=== PATIENT | female | born 2000 | race Caucasian/White ===

== ENCOUNTER 2022-03-15 19:19 | Emergency (ER) | payer OTHER, SELFPAY ==
[2022-03-15 19:28] VITALS: BP 135/88; PULSE 118; RESP 18; TEMP 36.8; O2SAT 98
[2022-03-15 19:44] LABS: Strep A Nucleic Acid Negative (Negative)
[2022-03-15 19:50] LABS: COVID-19 Test Negative (Negative); IDNOW Serial# 16C4AD1C
[2022-03-15 20:00] LABS: Influenza A Positive (Negative); Influenza B2 Negative (Negative)
--- NOTE | 2022-03-15 20:38 | ED_ITS ---
HPI - URI/Sore Throat General Chief Complaint: General Medical Stated Complaint: possible strep Time Seen by Provider: 03/15/22 20:38 Source: patient Mode of arrival: ambulatory Limitations: no limitations History of Present Illness HPI Narrative: Patient presents to the emergency department for evaluation of sore throat, headache, nasal congestion, cough since yesterday. Two days ago she was exposed to somebody who tested positive for strep throat. She reports a fever yesterday of 101.2. Related Data Allergies Allergy/AdvReac Type Severity Reaction Status Date / Time No Known Allergies Allergy Verified 03/15/22 19:30 Review of Systems Review of Systems: Constitutional: Positive fever No weight loss, chills, weakness or fatigue. HEENT: positive nasal congestion. Positive sore throat. Skin: No rash or itching. Cardiovascular: No chest pain, chest pressure or chest discomfort. No palpitations Respiratory: Positive cough No shortness of breath Gastrointestinal: No anorexia, nausea, vomiting or diarrhea. No abdominal pain Genitourinary: No burning micturition. No urinary frequency or incontinence. Neurologic: No headache, dizziness, syncope Musculoskeletal: No muscle pain, back pain, joint pain or stiffness. Hematologic: No bleeding or bruising. Lymphatics: No enlarged lymph nodes. Endocrine: No polyuria or polydipsia. Yes all other systems are reviewed and are negative PMFSH Past Medical History Attestation statement: The following information was validated with the patient. Source: old records reviewed Social History Social History Advance Directives: No Advance Directives Information Provided: No Physical Exam Vital Signs: Vital Signs: Last Vital Signs Temp 98.2 F 03/15/22 19:28 Pulse 118 H 03/15/22 19:28 Resp 18 03/15/22 19:28 BP 135/88 03/15/22 19:28 Pulse Ox 98 03/15/22 19:28 BMI result Body Mass Index 20.0 Vital signs have been reviewed as normal and appeared to be correct. Blood pressure normal.? Heart rate initially elevated during triage at 118, during my exam heart rate had improved to 92.? Respiration rate normal. Temperature moises l.? Oxygen saturation normal. Appearance: Alert.?Oriented to person, place and time. No acute distress.?Normal affect. Eyes: Pupils equal, round and reactive to light.? ENT: Pharynx mild erythema, no tonsillar hypertrophy, no exudate?? Neck: Normal inspection.? Neck supple.?? CVS: Heart sounds normal. Normal heart rate and rhythm.? Pulses normal.?? Respiratory: No respiratory distress.? Lung sounds clear to auscultation bilaterally?? Abdomen: Soft and non-tender. Skin: Skin warm and dry.? Normal skin color.? Extremities: No lower extremity edema. Neuro: Moves all extremities spontaneously. Sensation intact bilaterally. No focal neuro deficits. Ambulates with normal steady gait. Course Course Course Narrative: Patient is a 21-year-old female with exposure to strep positive person, presenting to the Emergency Department evaluation of upper respiratory symptoms and sore throat. She is well appearing, nontoxic, afebrile, maintaining airway. Not consistent with peritonsillar abscess, retropharyngeal abscess. COVID- 19 and strep testing are negative. Influenza A testing is positive. Discussed findings with patient, conservative measures including rest, hydration, reasons to return back to the emergency department, all questions were answered and patient is agreeable with plan of care. MDM - URI/Sore Throat Lab Data Labs: Lab Results 03/15/22 03/15/22 03/15/22 Range/Units 19:27 19:27 19:27 COVID-19 (SHANNAN) Negative (Negative) COVID-19 Clin Com See Note Influenza Type A (RONALDO) Positive A (Negative) Influenza Type B (RONALDO) Negative (Negative) Influenza A & B Note See Note S. pyogenes GrpA RONALDO Negative (Negative) Discharge Plan Discharge Clinical Impression: Influenza A Patient Disposition: Home, Self-Care Instructions: Influenza (ED) Additional Instructions: You have tested positive for the flu. Be sure to rest, stay well hydrated, use Tylenol or ibuprofen as needed for body aches, or fever. You can return to work or school once you have been without a fever for 24 hours, and when your symptoms have resolved.
== END 2022-03-15 21:00 | disposition home or self-care (01) ==
PROVIDERS: Emergency Provider Internal Medicine
DX: J10.1 Influenza due to other identified influenza virus with other respiratory manifestations (principal); Z20.822 Contact with and (suspected) exposure to COVID-19; Z79.899 Other long term (current) drug therapy
CPT/HCPCS: 87502; 87635; 87651; 99283

== ENCOUNTER 2025-06-15 11:39 | Outpatient (REF) | payer OTHER, SELFPAY ==
[2025-06-15 22:22] LABS: CT PCR Urine NOT DETECTED (Not Detect.); NG PCR Urine NOT DETECTED (Not Detect.)
== END 2025-06-15 11:40 | disposition home or self-care (01) ==
LOC: CF 11:39
PROVIDERS: Visit Provider Physician Assistant Medical
DX: R30.0 Dysuria (principal); Z11.8 Encounter for screening for other infectious and parasitic diseases; Z13.89 Encounter for screening for other disorder
CPT/HCPCS: 36415; 81003; 81025; 87086; 87491; 87591; 99212

== ENCOUNTER 2025-06-15 11:39 | Outpatient (AMB) | payer OTHER, SELFPAY ==
--- NOTE | 2025-06-15 11:46 | AM.OFFWIN_ITS ---
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 dark urine, burning with urinating, burning to vagina. Allergies No Known Allergies Allergy (Verified 06/15/25 11:52) Do you need a note to return to daycare/school/sports/work: Yes HPI HPI Comments History of Present Illness Details History - The patient is a 24-year-old female pr esenting with urinary symptoms suggestive of a urinary tract infection. - She reports a burning sensation in the vaginal area, primarily after urination, which started three days ago. - She is currently on her menstrual evelin od, which began two to three days ago, and has experienced abdominal pain attributed to menstrual cramps. - There is a concern for a possible sexu ally transmitted infection, although no tests have been conducted yet. - The patient has experienced diarrhea b ut denies any nausea, vomiting, fever, chills, or back pain. - She recently restarted control e ight days ago after a year-long hiatus and is uncertain about the possibility of . - She has been sexually active. Physical Exam General: Cooperative, healthy appearing, comfortable, no acute distress and well developed Cardiac: Normal S1 and S2. RRR, no M/R/G noted. Respiratory: Normal respiratory effort and able to speak in complete sentences. Clear to auscultation bilaterally. No w/r/r noted. Skin: No rashes or lesions noted. GI: Normal inspection. Normal BS noted. Soft, non-tender, non-distended. No TTP of all 4 quadrants. No guarding or rebound tenderness noted. Back: Negative CVA bilaterally Patient was informed and verbally consented to the use of an ambient scribe for clinic note documentation during this visit. Review of Systems Const All systems reviewed & are unremarkable except as noted in HPI and below Physical Exam Vital Signs: Last Vital Signs Temp 98.1 F 06/15/25 11:47 Pulse 90 06/15/25 11:47 BP 106/70 06/15/25 11:47 Pulse Ox 98 06/15/25 11:47 Oxygen Delivery Method Room Air 06/15/25 11:47 BMI result Body Mass Index 22.9 Results AMB Urinalysis, Automated UA Leukoctes 500 Adeel/uL Last Edit by Krysta Brewer MA on 06/15/25 12:04 UA Nitrite Negative Last Edit by Krysta Brewer MA on 06/15/25 12:04 UA Urobilinogen 0.2 mg/dL Last Edit by Krysta Brewer MA on 06/15/25 12:04 UA Protein 0 mg/dL Last Edit by Krysta Brewer MA on 06/15/25 12:04 UA pH 6.0 Last Edit by Krysta Brewer MA on 06/15/25 12:04 UA Blood 200 Omkar/uL Last Edit by Krysta Brewer MA on 06/15/25 12:04 UA Specific [place] 1.015 Last Edit by Krysta Brewer MA on 06/15/25 12:0 4 UA Ketone Negative Last Edit by Krysta Brewer MA on 06/15/25 12:04 UA Bilirubin 0 mg/dL Last Edit by Krysta Brewer MA on 06/15/25 12:04 UA Glucose 0 mg/dL Last Edit by Krysta Brewer MA on 06/15/25 12:04 Results Reviewed Results Reviewed: Laboratory Last Values Urine pH (Auto) 6.0 06/15/25 11:53 Specific [place] (Auto) 1.015 06/15/25 11:53 Urine Protein (Auto) 0 mg/dL 06/15/25 11:53 Glucose (UA)(Auto) 0 mg/dL 06/15/25 11:53 Urine Ketones (Auto) Negative 06/15/25 11:53 Urine Blood (Auto) 200 Omkar/uL H* 06/15/25 11:53 Urine Nitrite (Auto) Negative 06/15/25 11:53 Urine Bilirubin (Auto) 0 mg/dL 06/15/25 11:53 Urine Urobilinogen (Auto) 0.2 mg/dL 06/15/25 11:53 Leukocyte Esterase (Auto) 500 Adeel/uL H* 06/15/25 11:53 Assessment & Plan Assessment & Plan (1) Dysuria: Code(s): R30.0 - Dysuria Plan Most likely UTI vs STD UA in the office shows 3+ leuko and blood HCG in the office was negative Plan - Plan to conduct urinalysis and culture to confirm diagnosis and guide treatment. - Consider empirical antibiotic therapy based on urinalysis results. - Drink lots of fluids - tylenol or motrin as needed for pain 2. Possible Sexually Transmitted Infection (Sti) - Plan to conduct STI panel to rule out infections. Orders: Orders AMB Urinalysis Automated Today Z13.9 - Encounter for screening, unspecified AMB HCG Urine Test Today R30.0 - Dysuria Urine Culture Today N39.0 - Urinary tract infection, site not specified, R30.0 - Dysuria CT NG by PCR Urine Today R30.0 - Dysuria Coding Level of Care Code Est Pt Level 4 (04997) Diagnoses Dysuria R30.0
[2025-06-15 11:47] VITALS: BP 106/70; PULSE 90; TEMP 36.7; O2SAT 98; BMI 22.9
--- OUTSIDE RECORDS SUMMARY | 2025-06-15 12:32 | XMS_ITS | Encounter Summary ---
Author Organization [facility] Address [address] [place] [address] Phone Care Team Providers Care Monument Setter Helper Name Role Phone Bree Padilla MD Primary Care Provider [phone] Encounter Details Date Type Department Care Team (Late st Contact Info) Description 07/10/2012 Documentation [facility] [place] [address] [place] [address] Family Medicine, Physician [address] [place] [address] Social History Tobacco Use Types Packs/Day Years Used Date Smoking Tobacco: Never Assessed Comments Unknown Sex and Gender Information Value Date Recorded Sex Assigned at Female 01/26/2020 9:29 AM EST Legal Sex Female 4:54 PM EDT Gender Identity Female 01/26/2020 9:29 AM EST Sexual Orientation Straight 01/26/2020 9: 29 AM EST documented as of this encounter Plan of Treatment Not on file documented as of this encounter Visit Diagnoses Not on filedocumented in this encounter Care Teams Monument Setter Helper Relationship Specialty Start Date End Date Bree Padilla MD [address] [place] [address] PCP - General Pediatrics 01/02/23 07/01/23 documented as of this encounter
--- OUTSIDE RECORDS SUMMARY | 2025-06-15 12:32 | XMS_ITS | Clinical Summary ---
Author Organization [facility] Address [address] [place] [id number] Phone Care Team Providers Care Clockmaker Name Role Phone Pcp, Unknown Primary Care Provider Unavailabl e Allergies No known active allergies Medications No known medications Social History Tobacco Use Types Packs/Day Years Used Date Smoking Tobacco: Never Assessed Education Answer Date Recorded Are you interested in more education? Not on anni e 11/28/2023 Are you concerned about learning? Not on file 11/28/2023 No 11/28/2023 No 11/28/2023 Digital Access Answer Date Recorded No 11/28/2023 No 11/28/2023 Reliable internet access at home? Not on file 11/28/2023 Device with a working camera? Not on file Comments Unknown Sex and Gender Information Value Date Recorded Sex Assigned at Female 11/28/2023 9:15 AM EST Legal Sex Female 8:53 AM EST Gender Identity Female 11/28/2023 9:15 AM EST Sexual Orientation Straight 11/28/2023 9: 15 AM EST Last Filed Vital Signs Vital Sign Reading Time Taken Comments Blood Pressure 113/93 11/28/2023 12:29 PM EST Pulse 110 11/28/2023 9:14 AM EST Temperature 36.8 C (98.2 F) 11/28/2023 12:29 PM EST Respiratory Rate 18 11/28/2023 12:29 PM EST Oxygen Saturation 94% 11/28/2023 12:29 PM EST Inhaled Oxygen Concentration - - Weight 59 kg (130 lb) 11/28/2023 9:14 AM EST Height 157.5 cm (5' 2 ) 11/28/2023 9:14 AM EST Body Mass Index 23.78 11/28/2023 9:14 AM EST Plan of Treatment Health Maintenance Due Date Last Done Comments DEPRESSION SCREENING 2013 SMOKING Hx and SMOKELESS TOB ACCO SCREENING 2014 HPV VACCINES (1 - 3-dose series) 2016 CHLAMYDIA SCREENING 2017 MENINGOCOCCAL VACCINES (B) ( 1 of 2 - Standard) 2017 HEPATITIS C SCREENING 2019 HIV ONE-TIME SCREENING (18-6 5 YEARS) 2019 PAP SMEAR 2022 COVID-19 VACCINE (1 - 2023-2 5 season) 2024 Adult Td,Tdap Booster 09/13/2024 09/13/2014 HEPATITIS A VACCINES Aged Out No long er eligible based on patient's age to complete this topic HIB VACCINES Aged Out No longer eligi ble based on patient's age to complete this topic MENINGOCOCCAL VACCINES (ACWY) Aged Out No longer eligible based on patient's age to complete this topic PNEUMOCOCCAL VACCINES (0-49 years) Aged Out No longer eligible based on patient's age to complete this topic Medical Devices Not on file [place] [address] [address] [place] [address] [place] [address] ACO [facility] [address] [place] [address] [facility]ILDREN[facility]S [facility] Care Teams Clockmaker Relationship Specialty Start Date End Date Pcp, Unknown PCP - General 11/28/23 Additional Source Comments The information contained in this document represents components of the legal health record. It is not the complete legal health record.[facility]
== END 2025-06-15 13:02 | disposition home or self-care (01) ==
PROVIDERS: Visit Provider Physician Assistant Medical
DX: R30.0 Dysuria (principal); Z13.9 Encounter for screening, unspecified

== ENCOUNTER 2025-09-22 02:04 | Emergency (ER) | payer OTHER, SELFPAY ==
[2025-09-22 02:07] VITALS: BP 136/77; PULSE 95; RESP 20; TEMP 36.8; O2SAT 97; BMI 22.9
[2025-09-22 02:22] LABS: Hematocrit 38.5 % (37.0-47.0); Hemoglobin 12.9 g/dl (12.0-16.0); Imm Gran Abs Auto 0.00 X10*3/uL (0.00-0.03); Imm Gran Pct Auto 0.0 % (0.0-0.4); Lymphocytes Absolute Auto 2.5 X10*3/uL (1.2-4.9); MANUAL DIFF FLAG NO; Mean Corpuscular HGB Conc 33.5 g/dl (31.0-35.0); Mean Corpuscular Hemoglobin 30.4 pg (27.0-33.0); Mean Corpuscular Volume 90.6 fL (80.0-98.0); NRBC Abs Auto 0.000 X10*3/uL (0.0-0.012); NRBC Pct Auto 0.0 /100WBC (0.0-0.2); Platelet Count 232 X10*3/uL (160-400); Red Blood Count 4.25 X10*6/uL (4.20-5.50); White Blood Count 6.6 X10*3/uL (4.8-10.8)
--- OUTSIDE RECORDS SUMMARY | 2025-09-22 02:23 | XMS_ITS | Encounter Summary ---
Author Organization [facility] Address [address] [place] [address] Phone Care Team Providers Care Ibm Mainframe Developer Name Role Phone Bree Padilla MD Primary Care Provider [phone] Encounter Details Date Type Department Care Team (Late st Contact Info) Description 06/20/2017 Documentation [facility] [place] Family Medicine [address] [place] [address] Family Medicine, Physician [address] [place], [place] [phone] Social History Tobacco Use Types Packs/Day Years Used Date Smoking Tobacco: Never Comments:Never smoker Comments Unknown Sex and Gender Information Value [...] on filedocumented in this encounter Care Teams Ibm Mainframe Developer Relationship Specialty Start Date End Date Bree Padilla MD [address] [place] [id number] PCP - General Pediatrics 01/02/23 07/01/23 documented as of this encounter
--- OUTSIDE RECORDS SUMMARY | 2025-09-22 02:23 | XMS_ITS | Encounter Summary ---
Author Organization [facility] Address [address] [place] [address] Phone Care Team Providers Care Electric Wheelchair Repairer Name Role Phone Bree Padilla MD Primary Care Provider [phone] Reason for Visit * Reason Onset Date Comments Med Refill 02/23/2021 Encounter Details Date Type Department Care Team (Late st Contact Info) Description 02/23/2021 Refill [facility] [place] [address] [place] [address] Sushila Hi MD [address] [place] [address] Encounter for contraceptive management, unspecified type Social History Tobacco Use Types Packs/Day Years Used Date Smoking Tobacco: Never Smokeless Tobacco: Never Comments:Never smoker Alcohol Use Standard Drinks/Week Comments No 0 (1 standard drink = 0.6 oz pur e alcohol) Hunger/Food Answer Date Recorded In the last 12 months, did y ou or your family ever eat less than you felt you should because there wasn't enough money for food? No 01/26/2020 Stable Housing Answer Date Recorded Are you worried that in the next 2 months you may not have stable housing? No 01/26/2020 Transportation Concerns Answer Date Rec orded In the last 12 months, have you or your family ever had to go without healthcare because you didn't have a way to get there? No 01/26/2020 Hazards in Home Answer Date Recorded Think about the place you li ve. Do you have problems with any of the following? Pests (mice or roaches), mold, no/not working smoke detectors, water leaks, no window guards. No 2019 Financing Utilities Answer Date Recorde d In the last 12 months, has t he electric, gas, oil, or water company threatened to shut off your services in your home? No 01/26/2020 Safety at Home Answer Date Recorded Are you or your family worried about feeling saf e in your home? No 01/26/2020 Outside Support Answer Date Recorded Do you feel that you need mo re support from other people or programs to help you care for yourself or your family? No 01/26/2020 Understanding Health Concerns Answer Da te Recorded Do you need help understandi ng your or your child's healthcare needs (diagnosis, medications, plan, etc.)? No 01/26/2020 Financing Health Concerns Answer Date R ecorded In the last 12 months, was t here a time when your child needed to see a doctor or get medications or supplies but could not because of cost? No 01/26/2020 Missing School or Work Answer Date Kd rded Did you or your child miss s chool or work because of a health problem that could have been avoided? No 01/26/2020 Comments No Sex and Gender Information Value Date Recorded Sex Assigned at Female 01/26/2020 9:29 AM EST Legal Sex Female 4:54 PM EDT Gender Identity Female 01/26/2020 9:29 AM EST Sexual Orientation Straight 01/26/2020 9: 29 AM EST documented as of this encounter Miscellaneous Notes * Telephone Encounter - Janes Machado LPN - 02/26/2021 8:16 AM EDT Pt is requesting a refill on control. Last PE was over a year ago. Pt has PE scheduled for 02/28/21 documented in this encounter Plan of Treatment Not on file documented as of this encounter Visit Diagnoses Diagnosis Encounter for contraceptive management, unspecified type documented in this encounter Care Teams Electric Wheelchair Repairer Relationship Specialty Start Date End Date Bree Padilla MD [address] [place] [address] PCP - General Pediatrics 01/02/23 07/01/23 documented as of this encounter
--- OUTSIDE RECORDS SUMMARY | 2025-09-22 02:23 | XMS_ITS | Clinical Summary ---
Author Organization [facility] Address [address] [place] [phone] Phone Care Team Providers Care Medical Pathologist Name Role Phone Pcp, Unknown Primary Care [...] (18-6 5 YEARS) 2019 PAP SMEAR 2022 Adult Td,Tdap Booster 09/13/2024 09/13/2014 INFLUENZA VACCINE (#1) 2025 COVID-19 VACCINE (2024-2 6 season) 2025 HEPATITIS A VACCINES Aged Out No long [...] topic Medical Devices Not on file Insurance [address] [place], [place] [address] ACO [facility] Care Teams Medical Pathologist Relationship Specialty Start Date End Date Pcp, Unknown PCP - General 11/28/23 Additional Source Comments The information contained in this document represents components of the legal health record. It is not the complete legal health record.[facility]
--- OUTSIDE RECORDS SUMMARY | 2025-09-22 02:23 | XMS_ITS | Encounter Summary ---
Author Organization [facility] Address [address] [place] [address] Phone Care Team Providers Care Health Care Recruiter Name Role Phone Bree Padilla MD Primary Care Provider [phone] Encounter Details Date Type Department Care Team (Late st Contact Info) Description 07/10/2012 Documentation [facility] [place] Family Medicine [address] [place] [address] Family Medicine, Physician [address] [place] [address] Social History Tobacco Use Types Packs/Day Years [...] on filedocumented in this encounter Care Teams Health Care Recruiter Relationship Specialty Start Date End Date Bree Padilla MD [address] [place] [id number] PCP - General Pediatrics 01/02/23 07/01/23 documented as of this encounter
--- OUTSIDE RECORDS SUMMARY | 2025-09-22 02:23 | XMS_ITS | Encounter Summary ---
Author Organization [facility] Address [address] [place] [address] Phone Care Team Providers Care Puppy Walker Name Role Phone Bree Padilla MD Primary Care Provider [phone] Encounter Details Date Type Department Care Team (Late st Contact Info) Description 08/19/2016 Documentation [facility] [place] Family Medicine [address] [place] [address] Family Medicine, Physician [address] [place], [place] [address] Social History Tobacco Use Types Packs/Day Years [...] on filedocumented in this encounter Care Teams Puppy Walker Relationship Specialty Start Date End Date Bree Padilla MD [address] [place] [address] PCP - General Pediatrics 01/02/23 07/01/23 documented as of this encounter
--- OUTSIDE RECORDS SUMMARY | 2025-09-22 02:23 | XMS_ITS | Encounter Summary ---
Author Organization [facility] Address [address] [place] [address] Phone Care Team Providers Care Underwriter Mortgage Loan Name Role Phone Bree Padilla MD Primary Care Provider [phone] Encounter Details Date Type Department Care Team (Late st Contact Info) Description 09/15/2014 Documentation [facility] [place] Family Medicine [address] [place] [address] Family Medicine, Physician [address] [place], [place] [address] Social History Tobacco Use Types Packs/Day Years [...] on filedocumented in this encounter Care Teams Underwriter Mortgage Loan Relationship Specialty Start Date End Date Bree Padilla MD [address] [place] [address] PCP - General Pediatrics 01/02/23 07/01/23 documented as of this encounter
--- OUTSIDE RECORDS SUMMARY | 2025-09-22 02:23 | XMS_ITS | Encounter Summary ---
Author Organization [facility] Address [address] [place] [address] Phone Care Team Providers Care K 9 Police Officer Name Role Phone Bree Padilla MD Primary Care Provider [phone] Encounter Details Date Type Department Care Team (Late st Contact Info) Description 06/26/2011 Documentation [facility] [place] [address] [place] [address] Family Medicine, Physician [address] [place], [place] [address] Social History Tobacco Use Types Packs/Day Years [...] on filedocumented in this encounter Care Teams K 9 Police Officer Relationship Specialty Start Date End Date Bree Padilla MD [address] [place] [address] PCP - General Pediatrics 01/02/23 07/01/23 documented as of this encounter
--- OUTSIDE RECORDS SUMMARY | 2025-09-22 02:23 | XMS_ITS | Encounter Summary ---
Author Organization [facility] Address [address] [place] [address] Phone Care Team Providers Care Senior Advocate Name Role Phone Bree Padilla MD Primary Care Provider [phone] Encounter Details Date Type Department Care Team (Late st Contact Info) Description 06/17/2017 Documentation [facility] [place] [address] [place] [address] Family Medicine, Physician [address] [place], [place] [address] Social History Tobacco Use Types Packs/Day Years [...] on filedocumented in this encounter Care Teams Senior Advocate Relationship Specialty Start Date End Date Bree Padilla MD [address] [place] [address] PCP - General Pediatrics 01/02/23 07/01/23 documented as of this encounter
--- OUTSIDE RECORDS SUMMARY | 2025-09-22 02:23 | XMS_ITS | Encounter Summary ---
Author Organization [facility] Address [address] [place] [address] Phone Care Team Providers Care Poultry Processing Supervisor Name Role Phone Bree Padilla MD Primary Care Provider [phone] Encounter Details Date Type Department Care Team (Late st Contact Info) Description 02/14/2012 Documentation [facility] [place] Family Medicine [address] [place] [address] Family Medicine, Physician [address] [place], [place] [address] Social History Tobacco Use Types Packs/Day Years [...] on filedocumented in this encounter Care Teams Poultry Processing Supervisor Relationship Specialty Start Date End Date Bree Padilla MD [address] [place] [address] PCP - General Pediatrics 01/02/23 07/01/23 documented as of this encounter
--- OUTSIDE RECORDS SUMMARY | 2025-09-22 02:23 | XMS_ITS | Encounter Summary ---
Author Organization [facility] Address [address] [place] [address] Phone Care Team Providers Care Pbx Technician Name Role Phone Bree Padilla MD Primary Care Provider [phone] Encounter Details Date Type Department Care Team (Late st Contact Info) Description 12/11/2016 Documentation [facility] [address] [place] [address] Family Medicine, Physician [address] [place], [place] [address] Social History Tobacco Use Types Packs/Day Years [...] on filedocumented in this encounter Care Teams Pbx Technician Relationship Specialty Start Date End Date Bree Padilla MD [address] [place] [id number] PCP - General Pediatrics 01/02/23 07/01/23 documented as of this encounter
--- OUTSIDE RECORDS SUMMARY | 2025-09-22 02:23 | XMS_ITS | Encounter Summary ---
Author Organization [facility] Address [address] [place] [address] Phone Care Team Providers Care Supervisor Roller Shop Name Role Phone Bree Padilla MD Primary Care Provider [phone] Encounter Details Date Type Department Care Team (Late st Contact Info) Description 07/10/2017 Conversion Encounter [facility] [address] [place] [address] Social History Tobacco Use Types Packs/Day Years [...] on filedocumented in this encounter Care Teams Supervisor Roller Shop Relationship Specialty Start Date End Date Bree Padilla MD [address] [place] [address] PCP - General Pediatrics 01/02/23 07/01/23 documented as of this encounter
--- OUTSIDE RECORDS SUMMARY | 2025-09-22 02:23 | XMS_ITS | Encounter Summary ---
Author Organization [facility] Address [address] [place] [address] Phone Care Team Providers Care Transaction Manager Name Role Phone Bree Padilla MD Primary Care Provider [phone] Reason for Visit * Reason Onset Date Comments Med Refill 05/07/2021 Encounter Details Date Type Department Care Team (Late st Contact Info) Description 05/07/2021 Refill [facility] [address] [place] [address] Sushila Hi MD [address] [place] [address] Encounter for contraceptive management, unspecified type Social [...] there wasn't enough money for food? No 02/28/2021 Stable Housing Answer Date Recorded Are you worried that in the next 2 months you may not have stable housing? No 02/28/2021 Transportation Concerns Answer Date Rec orded In the last 12 months, have you or your family ever had to go without healthcare because you didn't have a way to get there? No 02/28/2021 Hazards in Home Answer Date Recorded Think about the place you li ve. Do you have problems with any of the following? Pests (mice or roaches), mold, no/not working smoke detectors, water leaks, no window guards. No 2020 Financing Utilities Answer Date Recorde d In the last 12 months, has t he electric, gas, oil, or water company threatened to shut off your services in your home? No 02/28/2021 Safety at Home Answer Date Recorded Are you or your family worried about feeling saf e in your home? No 02/28/2021 Outside Support Answer Date Recorded Do you feel that you need mo re support from other people or programs to help you care for yourself or your family? No 02/28/2021 Understanding Health Concerns Answer Da te Recorded Do you need help understandi ng your or your child's healthcare needs (diagnosis, medications, plan, etc.)? No 02/28/2021 Financing Health Concerns Answer Date R ecorded In the last 12 months, was t here a time when your child needed to see a doctor or get medications or supplies but could not because of cost? No 02/28/2021 Missing School or Work Answer Date Kd rded Did you or your child miss s chool or work because of a health problem that could have been avoided? No 02/28/2021 Comments No Sex and Gender Information Value [...] type documented in this encounter Care Teams Transaction Manager Relationship Specialty Start Date End Date Bree Padilla MD [address] [place] [address] PCP - General Pediatrics 01/02/23 07/01/23 documented as of this encounter
--- OUTSIDE RECORDS SUMMARY | 2025-09-22 02:23 | XMS_ITS | Encounter Summary ---
Author Organization [facility] Address [address] [place] [address] Phone Care Team Providers Care Online Content Coordinator Name Role Phone Bree Padilla MD Primary Care Provider [phone] Encounter Details Date Type Department Care Team (Late st Contact Info) Description 06/17/2017 Documentation [facility] [address] [place] [address] Family Medicine, Physician [address] [place], [place] [address] Social History Tobacco Use Types Packs/Day Years [...] on filedocumented in this encounter Care Teams Online Content Coordinator Relationship Specialty Start Date End Date Bree Padilla MD [address] [place] [id number] PCP - General Pediatrics 01/02/23 07/01/23 documented as of this encounter
--- OUTSIDE RECORDS SUMMARY | 2025-09-22 02:23 | XMS_ITS | Encounter Summary ---
Author Organization [facility] Address [address] [place] [address] Phone Care Team Providers Care Delivery Crew Worker Name Role Phone Bree Padilla MD Primary Care Provider [phone] Encounter Details Date Type Department Care Team (Late st Contact Info) Description 10/14/[address] [facility] [place] Family Medicine [address] [place] [address] Family Medicine, Physician [address] [place], [place] [address] Social History Tobacco Use Types Packs/Day Years [...] on filedocumented in this encounter Care Teams Delivery Crew Worker Relationship Specialty Start Date End Date Bree Padilla MD [address] [place] [address] PCP - General Pediatrics 01/02/23 07/01/23 documented as of this encounter
--- OUTSIDE RECORDS SUMMARY | 2025-09-22 02:23 | XMS_ITS | Encounter Summary ---
Author Organization [facility] Address [address] [place] [address] Phone Care Team Providers Care Circuit Court Magistrate Name Role Phone Bree Padilla MD Primary Care Provider [phone] Reason for Visit * Reason Comments Med Refill Encounter Details Date Type Department Care Team (Late st Contact Info) Description 02/11/2022 Refill [facility] [place] [address] [place] [address] Sushila Hi MD [address] [place] [address] Encounter for contraceptive management, unspecified type Social [...] encounter Miscellaneous Notes * Telephone Encounter - Darian Bolden LPN - 02/12/2022 8:34 AM EDT Pharm requesting refill of Etonogestrel-ethinyl estradiol. Last PE 02/28/21 documented in this encounter Plan of Treatment Not on file documented as of this encounter Visit Diagnoses Diagnosis Encounter for contraceptive management, unspecified type documented in this encounter Care Teams Circuit Court Magistrate Relationship Specialty Start Date End Date Bree Padilla MD [address] [place] [address] PCP - General Pediatrics 01/02/23 07/01/23 documented as of this encounter
--- OUTSIDE RECORDS SUMMARY | 2025-09-22 02:23 | XMS_ITS | Encounter Summary ---
Author Organization [facility] Address [address] [place] [address] Phone Care Team Providers Care Employee Communications Coordinator Name Role Phone Bree Padilla MD Primary Care Provider Reason for Visit * Reason Onset Date Comments Med Refill 09/08/2020 Encounter Details Date Type Department Care Team (Late st Contact Info) Description 09/08/2020 Refill [facility] [address] [place] [address] Sushila Hi MD [address] [place] [address] Encounter for initial prescription of contraceptive pills Social History Tobacco Use Types Packs/Day Years [...] encounter Miscellaneous Notes * Telephone Encounter - Divya Frankel LPN - 09/09/2020 12:21 PM EDT Needs refill on ocp's Last pe 01/2020 documented in this encounter Plan of Treatment Not on file documented as of this encounter Visit Diagnoses Diagnosis Encounter for initial prescription of contraceptive pills documented in this encounter Care Teams Employee Communications Coordinator Relationship Specialty Start Date End Date Bree Padilla MD [address] [place] [address] PCP - General Pediatrics 01/02/23 07/01/23 documented as of this encounter
--- OUTSIDE RECORDS SUMMARY | 2025-09-22 02:23 | XMS_ITS | Clinical Summary ---
Author Organization [facility] Address [address] [place] [address] Phone Care Team Providers Care Control Room Agent Name Role Phone Unavailable Primary Care Provider Unavailabl e Allergies Active Allergy Reactions Criticality Noted Date Comments Environmental 02/28/2021 Seasonal Peanuts (Food) Itching Medications hydrocortisone 2.5 % ointment 9 Active cetirizine (ZyrTEC Allergy) 10 MG tabletIndications :Peanut allergy,Seasonal allergies Take 1 tablet (10 mg total) by mouth nightly as needed for allergies. 30 tablet 11 2 Active EPINEPHrine (EpiPen 2-Franco) 0.3 MG/0.3ML injection syringeIndication s:Peanut allergy Inject into muscle immediately for signs of anaphylaxis AND call 911. Repeat if symptoms worsen/recur or if uncertain medicine was given 4 each 1 3 Active Tri-Sprintec 0.18/0.215/0.25 MG-35 MCG per tabletIndications :Encounter for initial prescription of contraceptive pills,Acne vulgaris TAKE 1 TABLET BY MOUTH DAILY 28 tablet 2 3 Active Active Problems Problem Noted Date Diagnosed Date Encounter for initial prescription of contracept sidra pills 01/03/2023 Overview (01/03/2023): 01/03/2023 Stopped nuvaring on 11/24/2022. Would like to start OCPs to help with acne. Not currently sexually active. Plan: Start OCPs Refer to LINEN ROOM SUPERVISOR Assessment & Plan (01/03/2023 11:28 AM EST): Stopped nuvaring on 11/24/2022. Would like to start OCPs to help with acne. Not currently sexually active. Plan: Start OCPs Refer to LINEN ROOM SUPERVISOR Generalized anxiety disorder 01/03/2023 Overview (01/03/2023): 01/03/2023 Positive PHQ9 and JENNIFER-7 today. No SI. Interested in starting therapy but not sure where to begin. Warm hand off for assistance in finding a Adult provider Assessment & Plan (01/06/2023 1:28 PM EST): Patient who reports being anxious and worried and having a low mood in the context of family stress. Patient will benefit from referral to individual therapy. Patient is ready to address these issues. PLAN: 1. Follow up with [facility] if needed 2. Patient goal is to be aware of appropriate services and how to access them. 3. Behavioral Recommendations: a. Review grounding and choose strategies to practice when feeling calm and regulated b. Referrals to [facility] and [facility] c. Follow up if needed Assessment & Plan (01/03/2023 11:36 AM EST): Positive PHQ9 and JENNIFER-7 today. No SI. Interested in starting therapy but not sure where to begin. Warm hand off for assistance in finding a Adult provider Acne vulgaris 01/03/2023 Overview (01/03/2023): 01/03/2023 would like to start OCPs to help with acne. Also concerned about scarring from acne Start OCPs, topical acne meds, and refer to Derm Assessment & Plan (01/03/2023 11:40 AM EST): Gill would like to start OCPs to help with acne. Also concerned about scarring from acne PLAN: Start OCPs, topical acne meds, and refer to Derm Loss of smell 02/28/2021 Overview (02/28/2021): Loss of smell and taste approx 2 months ago. Was not tested for COVID at the time as she did not think about it. No one she knows had covid at the time. Says things don't smell good. Mood changes 02/06/2021 Assessment & Plan (02/28/2021 11:14 AM EDT): Mildly normal PHQ 9. Pt feels she is doing well given it COVID. She is working and finishing up HS online. Is worried about her first class of the day as she does not wake up on time. Reports that she has gotten all of her assignments done. Denies SI. Is looking forward to the end of school. Assessment & Plan (02/06/2021 8:07 PM EDT): Discussed mood concerns. Pt is not interested in therapy and refused mood screen today. Denies significant concerns with mood. Low vision, both eyes 01/26/2020 Overview (02/28/2021): Has glasses, does not always wear them. 02/2021 Last year vision test 20/50 OU. Gill says she has never had glasses Today 20/30 OS, 20/40 OD. Advised to get vision testing. Sister wears glasses. Assessment & Plan (02/28/2021 8:59 AM EDT): 02/2021 Last year vision test 20/50 OU. I wrote note that she had glasses but did not wear them. Today Glil says she has never had glasses Today 20/30 OS, 20/40 OD. Advised to get vision testing. Gill has not had any concern about her vision Assessment & Plan (01/26/2020 11:10 AM EST): Abnormal vision test today when not wearing glasses. Advised to wear glasses and to follow up with eye doc yearly Seasonal allergies 03/15/2019 Overview (03/15/2019): Seen by glass ribbon machine operator assistant. On nasacort and samantha Assessment & Plan (02/28/2021 9:01 AM EDT): Having seasonal allergies. meds not working great. Assessment & Plan (01/26/2020 11:12 AM EST): Zyrtec prescibed to take for seasonal allergies and to use for any allergic reaction prn. Peanut allergy 01/21/2019 Overview (01/21/2019): Pt has only had itchy mouth with peanuts. Has never been to an glass ribbon machine operator assistant. Per dad has an epipen but not sure from where. Referred to glass ribbon machine operator assistant. Epi pen prescribed and discussed. Assessment & Plan (01/03/2023 11:28 AM EST): Continue avoidance of peanuts Refilled EpiPen. Assessment & Plan (02/28/2021 9:01 AM EDT): Pt says she has an Epi pen at home. Assessment & Plan (01/26/2020 11:12 AM EST): Zyrtec prescibed to take for seasonal allergies and to use for any allergic reaction prn. Assessment & Plan (01/21/2019 11:36 AM EST): Pt has only had itchy mouth with peanuts. Has never been to an glass ribbon machine operator assistant. She avoids peanuts, can eat tree nuts. Per dad has an epipen but not sure from where. Referred to glass ribbon machine operator assistant. Epi pen prescribed and discussed. Atopic dermatitis, mild 10/14/2016 Assessment & Plan (01/21/2019 10:34 AM EST): Gets occas dry skin in flexural surfaces Assessment & Plan (01/06/2018 11:57 AM EST): Under good control with occasional unscented cream Psychosocial stressors 10/14/2016 Overview (02/28/2021): Was in foster care for a few years first with pat grandparents and then with pat aunt. Now back with father - older sister has moved out. Another Older sister (brittnee) of OD summer 2017 Assessment & Plan (02/28/2021 11:16 AM EDT): Reports doing okay. Working and going to school. She has no acute concerns. Assessment & Plan (01/26/2020 9:36 AM EST): Living with her father and sister Tari - 20 yo. Resolved Problems Problem Noted Date Diagnosed Date Resolved Date Encounter for initial prescr iption of vaginal ring hormonal contraceptive 02/06/2021 01/03/2023 Overview (02/06/2021): 01/2021Has been on OCP for past year. Change to nuvaring Assessment & Plan (02/28/2021 9:02 AM EDT): Just started on Nuvaring and thus far has no concerns. Assessment & Plan (02/06/2021 8:15 PM EDT): Discussed Nuvaring use. SE and how to use... To start at the end of the week when she is done with tis month of OCP. To follow up at that should to be scheduled in the next 1-2 months. Immunizations Immunization Administration Dates Next Due DTaP 5 06/26/2006, 3,04/20/2002,02/05,2001 HPV Vaccine 9 Valent 01/21/2019,01/06/2018,06/16 Hep A, ped/adol 10/14/2016,09/13/2014 Hep B, ped/adol 08/03/2002,2001,2001 Hib (PRP-T) 04/20/2002,02/05/2002,2001 IPV 06/26/2006, 2,02/05/2002,12/04 Influenza, injectable, quadr ivalent, preservative free 10/31/2020,10/14/2016 Influenza, intranasal, quadrivalent 09/13/2014 Influenza, intranasal, trivalent 08/07/2010 MMR 06/26/2006,10/29/2002 Meningococcal B Trumenba 08/31/2021,02/28/2021 Meningococcal Conj (Menactra) MCV4P 01/06/2018,1 Pneumococcal Conjugate 05/30/2003,2001,02/05/2002,12/04 Tdap 09/13/2014 Varicella 04/10/2009,10/29/2002 Family History Medical History Relation Name Comments Anxiety disorder Father Dalton Diza Asthma Father Dalton Diaz Substance abuse Father Dalton Diaz Emphysema Maternal Grandfather Diabetes Maternal Grandmother Bipolar disorder Mother Karla Diaz Depression Mother Karla Diaz Substance abuse Mother Karla Diaz Breast cancer Paternal Grandmother Depression Sister 1 Shaylee Diaz Depression Sister 2 Tari Diaz Depression Sister 3 Brittnee Diaz Polycystic ovary syndrome Sister 3 Brittnee Diaz Relation Name Status Comments Father Dalton Diaz Alive Father: ecz celena Maternal Grandfather Materna l grandfather: emphysema, Maternal Grandmother Materna l grandmother: Diabetes mellitus Mother Karla Diaz Alive Mother: Bipol ar disorder, depression Paternal Grandfather Paternal Grandmother Paterna l grandmother: Cancer -breast Sister 1 Shaylee Diaz Alive Sister: Ali ve and well, Alive and well, Alive and well Sister 2 Tari Diaz Alive Sister: Alive and well, Alive and well, Alive and well Sister 3 Brittnee Diaz Alive Sister: Alive and well, Alive and well, Alive and well Social History Tobacco Use Types Packs/Day Years Used Date Smoking Tobacco: Never Smokeless Tobacco: Never Tobacco Cessation:Counseling Given: Yes Comments:Never smoker Alcohol Use Standard Drinks/Week Comments No 0 (1 standard drink = 0.6 oz pur e alcohol) Hunger/Food Answer Date Recorded In the last 12 months, did y ou or your family ever eat less than you felt you should because there wasn't enough money for food? No 12/27/2022 Stable Housing Answer Date Recorded Are you worried that in the next 2 months you may not have stable housing? No 12/27/2022 Transportation Concerns Answer Date Rec orded In the last 12 months, have you or your family ever had to go without healthcare because you didn't have a way to get there? No 12/27/2022 Hazards in Home Answer Date Recorded Think about the place you li ve. Do you have problems with any of the following? Pests (mice or roaches), mold, no/not working smoke detectors, water leaks, no window guards. No 2022 Financing Utilities Answer Date Recorde d In the last 12 months, has t he [employer], gas, oil, or water company threatened to shut off your services in your home? No 12/27/2022 Safety at Home Answer Date Recorded Are you or your family worried about feeling saf e in your home? No 12/27/2022 Outside Support Answer Date Recorded Do you feel that you need mo re support from other people or programs to help you care for yourself or your family? No 12/27/2022 Understanding Health Concerns Answer Da te Recorded Do you need help understandi ng your or your child's healthcare needs (diagnosis, medications, plan, etc.)? No 12/27/2022 Financing Health Concerns Answer Date R ecorded In the last 12 months, was t here a time when your child needed to see a doctor or get medications or supplies but could not because of cost? No 12/27/2022 Missing School or Work Answer Date Kd rded Did you or your child miss s chool or work because of a health problem that could have been avoided? No 12/27/2022 Comments No Sex and Gender Information Value Date Recorded Sex Assigned at Female 01/26/2020 9:29 AM EST Legal Sex Female 4:54 PM EDT Gender Identity Female 01/26/2020 9:29 AM EST Sexual Orientation Straight 01/26/2020 9: 29 AM EST Last Filed Vital Signs Vital Sign Reading Time Taken Comments Blood Pressure 122/78 01/03/2023 11:26 AM EST Pulse 84 01/03/2023 11:26 AM EST Temperature 37 C (98.6 F) 01/03/2023 10:25 AM EST Respiratory Rate - - Oxygen Saturation - - Inhaled Oxygen Concentration - - Weight 59.1 kg (130 lb 6.4 oz) 01/03/2023 10:25 AM EST Height 157.5 cm (5' 2 ) 01/03/2023 10:25 AM EST Body Mass Index 23.85 01/03/2023 10:25 AM EST Plan of Treatment Health Maintenance Due Date Last Done Comments DTaP,Tdap,and Td Vaccines (7 - Td or Tdap) 09/13/2024 09/13/2014, 06/26/2006, 05/30/2003, Additional history exists Influenza Vaccines (#1) 2025 10/31/20 20, 10/14/2016, 09/13/2014, Additional history exists COVID-19 Vaccine ( season) 2025 04/14/2021, 03/24/2021 HIB Vaccines Aged Out 04/20/2002, 01/22, 2001 No longer eligible based on patient's age to complete this topic Hepatitis B Vaccines Completed 08/03/2002, 2001, 2001 Pneumococcal Vaccine Completed 05/30/2003, 04/20/2002, 02/05/2002, Additional history exists IPV Vaccines Completed 06/26/2006, 07/25, 02/05/2002, Additional history exists MMR Vaccines Completed 06/26/2006, 10/29/2002 Varicella Vaccines Completed 04/10/2009, 10/29/2002 Hepatitis A Vaccines Completed 10/14/2016, 09/13/20 14 Meningococcal Vaccine Completed 01/06/2018, 014 HPV Vaccines Completed 01/21/2019, 12/25, 06/16/2017 Men B Vaccine Completed 08/31/2021, 02/28/2021 Procedures * Due to [place] law, this organization might not be sharing sensitive test results. Procedure Name Priority Date/Time Associated Diagnosis Comments CHLAMYDIA AND GONORRHEA, AMPLIFIED Routine 01/03/2023 11:05 AM EST Encounter for screening examination for chlamydial infection from Last 3 Months or Most Recently Relevant to Health Maintenance Results * Due to [place] law, this organization might not be sharing sensitive test results. * Chlamydia and Gonorrhoea, Amplified (01/03/2023 11:05 AM EST) Chlamydia Trachomatis, DNA Probe NEGATIVE (NEG) [facility] Comment: No Chlamydia Trachomatis RNA detected in this patient's sample (REFERENCE RANGE/NORMAL VALUE: NOT DETECTED) Note: This test uses paper mill superintendent- mediated amplification method to detect rRNA from C. Trachomatis URINE GC AMP PROBE NEGATIVE (NEG) [facility] Comment: No Neisseria Gonorrhoeae RNA detected in this patient's sample (REFERENCE RANGE/NORMAL VALUE: NOT DETECTED) NOTE: This test uses paper mill superintendent-mediated amplification method to detect rRNA from N.Gonorrhoeae. A negative result does not preclude infection. In the case of a negative urine result, testing of an endocervical(female) or urethral (male) specimen is recommended if there is high clinical suspicion of infection. Due to very high sensitivity of Nucleic Acid Amplification Test, false positive results may occur. Therefore, specimen handling is extremely important. In patients in whom the disease is unlikely, additional sample for testing should be considered after an initial positive result. The performance characteristics of this test have not been evaluated in children. The Aptima Combo2 assay is not intended for the evaluation of suspected sexual abuse or for other medico-legal indications. The ordering provider should assess if the patient had consensual sex without risk of sexual abuse. Consult the [facility] if needed. Contact phone number . Therapeutic failure or success cannot be determined with the Aptima Combo2 assay since nucleic acid may persist following appropriate antimicrobial therapy. The Centers for Disease Control and Prevention (CDC) recommends confirmatory retesting using culture or a different nucleic acid amplification test when positive results occur, if indicated. Testing performed or reported by [facility], a Service of [facility], [address] [place] [address] [place] [address] Дмитрий Valentino MD, Orthodontic Technician Assistant [facility]# [id number] Urine (Urine) 01/03/2023 11: 05 AM EST 01/03/2023 2:45 PM EST us Bree Padilla MD LAB MICROBIOLOGY - GENERAL ORD ERABLES Final Result Performing Organization Address City/State/[facility] Co de Phone Number [facility] from Last 3 Months or Most Recently Relevant to Health Maintenance Insurance [facility] NON PCC
--- OUTSIDE RECORDS SUMMARY | 2025-09-22 02:23 | XMS_ITS | Encounter Summary ---
Author Organization [facility] Address [address] [place] [address] Phone Care Team Providers Care Impression Printer Name Role Phone Bree Padilla MD Primary Care Provider [phone] Encounter Details Date Type Department Care Team (Late st Contact Info) Description 10/15/2016 [place] [facility] [place] [address] [place] [address] Family Medicine, Physician [address] [place], [place] [address] Social History Tobacco Use Types Packs/Day Years [...] on filedocumented in this encounter Care Teams Impression Printer Relationship Specialty Start Date End Date Bree Padilla MD [address] [place] [id number] PCP - General Pediatrics 01/02/23 07/01/23 documented as of this encounter
--- OUTSIDE RECORDS SUMMARY | 2025-09-22 02:23 | XMS_ITS | Encounter Summary ---
Author Organization [facility] Address [address] [place] [address] Phone Care Team Providers Care Senior Property Accountant Name Role Phone Bree Padilla MD Primary Care Provider [phone] Encounter Details Date Type Department Care Team (Late st Contact Info) Description 06/26/2011 [place] [facility] [place] [address] [place] [address] Family Medicine, Physician [address] [place], [place] [id number] Social History Tobacco Use Types Packs/Day Years [...] filedocumented in this encounter Care Teams Senior Property Accountant Relationship Specialty Start Date End Date Bree Padilla MD [address] [place] [id number] PCP - General Pediatrics 01/02/23 07/01/23 documented as of this encounter
--- OUTSIDE RECORDS SUMMARY | 2025-09-22 02:23 | XMS_ITS | Encounter Summary ---
Author Organization [facility] Address [address] [place] [address] Phone Care Team Providers Care Engineering Supervisor Name Role Phone Bree Padilla MD Primary Care Provider [phone] Encounter Details Date Type Department Care Team (Late st Contact Info) Description 09/14/2014 Documentation [facility] [place] [address] [place] [address] Family Medicine, Physician [address] [place], [place] [address] Social History Tobacco Use Types Packs/Day Years [...] on filedocumented in this encounter Care Teams Engineering Supervisor Relationship Specialty Start Date End Date Bree Padilla MD [address] [place] [id number] PCP - General Pediatrics 01/02/23 07/01/23 documented as of this encounter
[2025-09-22 02:36] LABS: Alanine Aminotransferase 21 U/L (0-31); Albumin Level 4.5 g/dL (3.5-5.0); Alkaline Phosphatase 65 U/L (39-117); Anion Gap 13 (12-20); Aspartate Amino Transferase 25 U/L (5-31); Blood Urea Nitrogen 9 mg/dL (9-16); Calcium 9.3 mg/dL (8.4-10.2); Carbon Dioxide 23 mmol/L (22-29); Chloride 108 mmol/L (96-108); Creatinine Clr Calc Pharmacy 76.8; Estimated Glomerular Filt Rate > 60; Potassium 4.1 mmol/L (3.3-5.1); Sodium 140 mmol/L (135-145); Total Protein 7.9 g/dL (6.5-8.0)
[2025-09-22 03:32] LABS: Appearance Urine Clear; Glucose Urine UA Negative (Negative); PH 6.5 (5.0-9.0); Specific Gravity - Urine 1.015 (1.005-1.025); UMIC TRIGGER UACC YES
[2025-09-22 03:34] LABS: UPreg QC Valid YES
[2025-09-22 03:40] LABS: UACC Culture Trigger YES
--- NOTE | 2025-09-22 04:46 | ED_ITS ---
HPI - Abdominal Pain General Chief Complaint: Abdominal Pain Stated Complaint: Abdominal Pain Time Seen by Provider: 09/22/25 04:19 Source: patient Mode of arrival: ambulatory Limitations: no limitations History of Present Illness ED Provider: Dr. Maggie Zheng HPI narrative: Patient comes to the emergency room complaining of suprapubic pain and dysuria. Patient denies nausea vomiting and diarrhea. Patient states that her urine smells. Patient also reports blood in the urine. Related Data Home Medications ?Medication ?Instructions ?Recorded ?Confirmed amitriptyline 25 mg tablet 25 mg PO BEDTIME 06/15/25 escitalopram oxalate 5 mg tablet 5 mg PO DAILY 5 magnesium citrate 100 mg tablet 100 mg PO DAILY norethindrone 1 mg-ethinyl 1 tab PO DAILY 06/15/25 estradiol 20 mcg (21)-iron 75 mg (7) tablet (Junel FE 12/13 (28)) norgestimate-ethinyl estradiol 1 tab PO DAILY 06/15/25 0.18mg/0.215mg/0.25mg-0.035mg(28)tablet (Tri-Estarylla) vitamin B complex 1 cap PO DAILY 06/15/25 Previous Rx's ?Medication ?Instructions ?Recorded famciclovir 500 mg tablet 500 mg PO Q8H 5 days #15 tab s 09/22/25 levofloxacin 500 mg tablet 500 mg PO DAILY #6 tabs Allergies Allergy/AdvReac Type Severity Reaction Status Date / Time No Known Allergies Allergy Verified 09/22/25 02:09 Review of Systems Review of Systems Constitutional : No Weight loss, No Fever, No Chills, No Night Sweats, No Fatigue, No Malaise ENT/Mouth : No Hearing loss, No Ear Pain, No Nasal Congestion, No Sinus Pain, No Hoarseness, No sore throat, No Rhinorrhea, No Swallowing Difficulty Eyes: No Eye Pain, No Swelling, No Redness, No Foreign Body, No Discharge, No Vision Changes Cardiovascular : No Chest Pain, No SOB, No Dyspnea on Exertion, No Orthopnea, No Edema, No Palpitations Respiratory : No Cough, No Sputum, No Wheezing, No Smoke Exposure, No Dyspnea Gastrointestinal : No Nausea, No Vomiting, No Diarrhea, No Constipation, No abdominal Pain, No Hematochezia, No Melena Genitourinary : Denies currently menstruating. Complaining of dysuria, hematuria, malodorous urine Musculoskeletal : No joint pain, No Myalgias, No Joint Swelling Skin : No Skin Lesions, No rash Neuro : No Weakness, No Numbness, No Paresthesias, No Loss of Consciousness, No Dizziness, No Headache Psych : No Anxiety/Panic, No Depression, No SI/HI/AH/VH, No Social Issues, Heme/Lymph: No Bruising, No Bleeding,No Lymphadenopathy Endocrine : No Polyuria, No Polydipsia, No Temperature Intolerance [facility] Social History Social History Smoked in Last 30 Days: No Use of substances other than those prescribed or required for medical reasons: Yes Substance Use Type: Marijuana Substance Use Frequency: Daily Advance Directives: No Patient : No Physical Exam ED Exam Exam: Appearance: Alert. Oriented X3. No acute distress. Eyes: Pupils equal, round and reactive to light. ENT: Pharynx normal. Neck: Normal inspection. Neck supple. No lymph nodes noted. No crepitus CVS: Normal heart rate and rhythm. Pulses normal. Normal S1 and S2 Respiratory: No respiratory distress. Breath sounds normal. No Wheezing. No rales Abdomen: Soft and nontender. No rigidity. No distention. Mild discomfort to palpation over left side of the back, questionable positive CVA tenderness : Patient has herpes lesions in the labia majora, labia minora, vulvar area and minor lesions in the posterior aspect of the vaginal canal, no cervical motion tenderness. Skin: Skin warm and dry. Normal skin color. Normal skin turgor. Extremities: No lower extremity edema. No Lacerations. No Rash Neuro: Oriented X 3. No motor deficit. No sensory deficit. Moving all extremities. No slurred speech. CN 2 through 12 grossly intact Psych: calm, cooperative, normal affect Vital Signs: Vital Signs - 24 hr 09/22/25 02:07 Temperature 98.2 F Pulse Rate 95 Respiratory Rate 20 Blood Pressure 136/77 Pulse Oximetry 97 Oxygen Delivery Method Room Air BMI result Body Mass Index 22.9 Medical Decision Making Medical Decision Making MDM Narrative: Patient's vitals are stable, no fever My interpretation of labs: Patient's white blood cell count within normal limits, no abnormality chemistry, patient does have a UTI. Given patient's symptoms and physical exam of mild CVA tenderness, we will treat as pyelonephritis. Patient was given the 1st dose of levofloxacin. Also, patient states that she has vaginal smell. Initially she reported foul- smelling urine rather than vaginal discharge. Patient was offered vaginal swabs to check for gonorrhea, chlamydia, Trichomonas and bacterial vaginosis. I discussed with the patient that besides the UTI, on physical exam, it was noted that she has herpetic lesions in the genital area. I discussed with the patient that I recommend treatment for the UTI and herpes. Patient agreeable. Also, I recommended to treat empiric for STDs including gonorrhea chlamydia. Patient declined at this time. Patient states that she will wait for the results. Patient admits that she has been having unprotected sexual intercourse. I also recommended that the [facility] Patient can not get more thorough testing including HIV, hepatitis if she desires. Differential Diagnosis Differential Diagnoses: The differential diagnosis associated with the presentation includes (uti, pyelonephritis, STDs) Lab Data MDM Lab Attestation statement: I reviewed the patient's lab results. 09/22/25 02:15 09/22/25 02:15 Labs: Lab Results 09/22/25 09/22/25 Range/Units 02:15 03:25 WBC 6.6 (4.8-10.8) X10*3/uL RBC 4.25 (4.20-5.50) X10*6/uL Hgb 12.9 (12.0-16.0) g/dl Hct 38.5 (37.0-47.0) % MCV 90.6 (80.0-98.0) fL MCH 30.4 (27.0-33.0) pg MCHC 33.5 (31.0-35.0) g/dl RDW 12.9 (11.0-16.0) % Plt Count 232 (160-400) X10*3/uL MPV 10.0 (9.4-12.3) fL Immature Gran % (Auto) 0.0 (0.0-0.4) % Neut % (Auto) 46.4 (45-73) % Lymph % (Auto) 37.9 (20-40) % [place] % (Auto) 8.9 (2-11) % Eos % (Auto) 6.5 H (0-4) % Baso % (Auto) 0.3 (0-2) % Lymph # (Auto) 2.5 (1.2-4.9) X10*3/uL [place] # (Auto) 0.6 (0.1-1.2) X10*3/uL Eos # (Auto) 0.4 (0.0-0.4) X10*3/uL Baso # (Auto) 0.0 (0.0-0.2) X10*3/uL Abs Immat Gran (auto) 0.00 (0.00-0.03) X10*3/uL Absolute Neuts (auto) 3.1 (2.0-8.3) x10*3/uL Absolute Nucleated RBC 0.000 (0.0-0.012) X10*3/uL Nucleated RBC % (auto) 0.0 (0.0-0.2) /100WBC Sodium 140 (135-145) mmol/L Potassium 4.1 (3.3-5.1) mmol/L Chloride 108 (96-108) mmol/L Carbon Dioxide 23 (22-29) mmol/L Anion Gap 13 (12-20) BUN 9 (9-16) mg/dL Creatinine 0.90 (0.5-1.4) mg/dL Estim Creat Clear Calc 76.8 Estimated GFR > 60 Random Glucose 87 (60-115) mg/dL Calcium 9.3 (8.4-10.2) mg/dL Total Bilirubin 0.1 (0.0-1.0) mg/dL AST 25 (5-31) U/L ALT 21 (0-31) U/L Alkaline Phosphatase 65 (39-117) U/L Total Protein 7.9 (6.5-8.0) g/dL Albumin 4.5 (3.5-5.0) g/dL Urine Color Yellow Urine Appearance Clear Urine pH 6.5 (5.0-9.0) Ur Specific [place] 1.015 (1.005-1.025) Urine Protein Negative (Neg-Trace) mg/dL Urine Glucose (UA) Negative (Negative) mg/dL Urine Ketones Negative (Negative) mg/dL Urine Blood Small (1+) H (Negative) Urine Nitrite Negative (Negative) Ur Leukocyte Esterase Moderate (2+) H (Negative) Urine RBC 3-5 H (0-2) /HPF Urine WBC 6-10 (0-5) /HPF Ur Squamous Epith Cells 6-10 (0-2) /HPF Urine Bacteria 1+ (None Seen) Hyaline Casts 0-2 (0-2) /LPF Urine Test NEGATIVE (NEGATIVE) Medications Administered Discontinued Medications Generic Name Dose Route Start Last Admin Trade Name Alicia PRN Reason Stop Dose Admin Levofloxacin 500 mg 09/22/25 04:35 09/22/25 04:54 Levofloxacin 500 Mg Tablet PO 09/22/25 04:36 500 mg ONCE ONE Administration Discharge Plan Discharge Clinical Impression: UTI (urinary tract infection), Herpes genitalis in women Patient Disposition: Home, Self-Care Instructions: Genital Herpes Infection (ED), Urinary Tract Infection in Women (ED) Additional Instructions: If you are serology tests a positive for gonorrhea, chlamydia, Trichomonas, bacterial vaginosis, you will receive a phone call at home within the next 2-3 days. Please follow-up with your primary care physician tomorrow. If you have any worsening or new symptoms, please return to the emergency room or call 911 Prescriptions: New levofloxacin 500 mg tablet 500 mg PO DAILY Qty: 6 0RF famciclovir 500 mg tablet 500 mg PO Q8H 5 Days Qty: 15 0RF No Action amitriptyline 25 mg tablet 25 mg PO BEDTIME norethindrone-e.estradiol-iron [Junel FE 12/13 (28)] 1 mg-20 mcg (21)/75 mg (7) tablet 1 tab PO DAILY norgestimate-ethinyl estradiol [Tri-Estarylla] 0.18/0.215/0.25 mg-0.035mg (28) tablet 1 tab PO DAILY vitamin B complex Capsule 1 cap PO DAILY escitalopram oxalate 5 mg tablet 5 mg PO DAILY magnesium citrate 100 mg tablet 100 mg PO DAILY Stand Alone Forms: Work/School Release Print Language: Korean
[2025-09-22 07:18] VITALS: BP 115/85; PULSE 97; RESP 20; TEMP 37.2; O2SAT 98
[2025-09-22 09:57] LABS: Bacterial Vaginosis PCR NEGATIVE (Negative); Candida Group PCR NOT DETECTED (Not Detect); Candida glab krusei PCR NOT DETECTED (Not Detect); Trichomonas vaginalis PCR NOT DETECTED (Not Detect)
[2025-09-22 10:28] LABS: CT PCR NOT DETECTED (Not Detect.); NG PCR NOT DETECTED (Not Detect.)
== END 2025-09-22 07:19 | disposition home or self-care (01) ==
PROVIDERS: Emergency Provider Emergency Medicine
DX: N39.0 Urinary tract infection, site not specified (principal); R10.24 Suprapubic pain; R30.0 Dysuria
CPT/HCPCS: 36415; 80053; 81001; 81025; 81515; 85025; 87086; 87491; 87591; 87661; 99283; 99284